=== PATIENT | female | born 1960 | race Caucasian/White ===

== ENCOUNTER 2019-03-03 15:15 | Emergency (ER) | payer MEDICAID ==
[~2019-03-03] VITALS: Ht 174.8 cm; Wt 75.7 kg
[2019-03-03 15:24] VITALS: BP 129/70
--- NOTE | 2019-03-03 15:32 | NUR ---
FLU SWAB COLLECTED.
--- NOTE | 2019-03-03 15:34 | NUR ---
Patient ambulated to bed 8. RN evaluating patient at bedside.
--- NOTE | 2019-03-03 15:39 | NUR ---
58 Y/O F C/C COUGH X7 DAYS. PER PT HAS TAKEN OTC MEDICATIONS WITH NO RELIEF. PER PT NKA. NO HX. NO RX. NO N/V/D. PT HAS NOT TAKEN FLU SHOT; FAMILY SICK AT HOME. SIDE RAIL X1.
[2019-03-03 16:31] VITALS: BP 129/70
--- NOTE | 2019-03-03 16:31 | NUR ---
Patient discharged with v/s stable. Written and verbal after care instructions given and explained. Patient alert, oriented and verbalized understanding of instructions. Ambulatory with steady gait. All questions addressed prior to discharge. ID band removed. Patient advised to follow up with PMD. Rx of VENTOLIN, TESSALON, MEDROL, TAMIFLU given. Patient educated on indication of medication including possible reaction and side effects. Opportunity to ask questions provided and answered.
== END 2019-03-03 16:31 | disposition home or self-care (01) ==
LOC: MED 15:15
DX: J20.9 Acute bronchitis, unspecified (principal); J10.1 Influenza due to other identified influenza virus with other respiratory manifestations; F17.210 Nicotine dependence, cigarettes, uncomplicated; Z71.6 Tobacco abuse counseling
CPT/HCPCS: 71045; 87804; 99284; Q0092

== ENCOUNTER 2020-03-21 09:32 | Emergency (ER) | payer MEDICAID, SELFPAY ==
[~2020-03-21] VITALS: Ht 165.1 cm; Wt 74.8 kg
[2020-03-21 09:53] VITALS: BP 132/51
--- NOTE | 2020-03-21 09:54 | NUR ---
Patient ambulated to bed 3. RN evaluating patient at bedside.
--- NOTE | 2020-03-21 10:30 | NUR ---
server support technician at bedside.
[2020-03-21 10:45] LABS: BASOPHILS % (AUTO) 0.3 % (0.0-2.0); EOSINOPHILS % (AUTO) 0.6 % (0.0-4.0); HEMATOCRIT 41.9 % (36-48); HEMOGLOBIN 13.8 g/dL (12.0-16.0); LYMPHOCYTES # (AUTO) 1.7 K/uL (2.5-16.5); MEAN CORPUSCULAR HEMOGLOBIN 28 pg (27-31); MEAN CORPUSCULAR HGB CONC 33 g/dL (33-37); MEAN CORPUSCULAR VOLUME 85.3 fL (80-94); MONOCYTES # (AUTO) 0.6 K/uL (0.8-1.0); MONOCYTES % (AUTO) 10.3 % (1.7-9.3); NEUTROPHILS # (AUTO) 3.6 K/uL (1.8-7.7); NEUTROPHILS % (AUTO) 60.8 % (42.2-75.2); PLATELET COUNT (AUTO) 244 K/uL (140-450); RED BLOOD CELL COUNT(AUTO) 4.91 MIL/uL (4.20-5.40); RED CELL DISTRIBUTION WIDTH 13.1 % (11.6-13.7); WHITE BLOOD COUNT (AUTO) 5.9 K/uL (4.8-10.8)
[2020-03-21 10:58] LABS: C-REACTIVE PROTEIN QUANT 2.5 mg/dL (0.0-0.9)
[2020-03-21 11:00] LABS: PROTHROMBIN TIME 8.8 secs (10.8-13.4)
[2020-03-21 11:03] LABS: LACTATE DEHYDROGENASE 228 U/L (81-234)
[2020-03-21 11:16] LABS: ALBUMIN 3.5 g/dL (3.4-5.0); ANION GAP 12.1 (8-16); CARBON DIOXIDE 29.1 mmol/L (21-32); POTASSIUM 4.2 mmol/L (3.5-5.1); TOTAL BILIRUBIN 0.4 mg/dL (0.0-1.0)
[2020-03-21 11:17] LABS: RSV NEGATIVE (NEGATIVE)
[2020-03-21 11:49] LABS: CREATININE 0.8 mg/dL (0.6-1.3)
[2020-03-21 13:00] LABS: APPEARANCE,URINE HAZY (CLEAR); BILIRUBIN,URINE NEGATIVE (NEGATIVE); BLOOD, URINE TRACE-I (NEGATIVE); COLOR,URINE YELLOW (YELLOW); LEUKOCYTE ESTERASE ,URINE TRACE (NEGATIVE); NITRITE, URINE POSITIVE (NEGATIVE); PH,URINE 6.5 (5.0-9.0); UGLUCOSE NEGATIVE (NEGATIVE)
[2020-03-21 13:10] LABS: RBC,URINE 0-5 /HPF (0-5); WBC,URINE 0-5 /HPF (0-5)
[2020-03-21] MEDS ORDERED: COMMUNICATION ORDER MC ONE (13:40)
[2020-03-21] MEDS ORDERED: bamlanivimab 700 MG (1 VIAL) in NACL 0.9% @ 270 MLS/HR(270ml) IV SCH (14:00)
[2020-03-21] MEDS ORDERED: DEXAMETHASONE 10 MG/ML VIAL IVP ONE (14:15)
[2020-03-21] MEDS ORDERED: AZITHROMYCIN 500 MG in DEXTROSE 5% 250 ML IV ONE (14:15)
[2020-03-21] MEDS ORDERED: AZITHROMYCIN 500 MG INJ VIAL IV ONE (15:00)
[2020-03-21 17:12] VITALS: BP 129/70
== END 2020-03-21 17:01 | disposition home or self-care (01) ==
LOC: MED 09:32
DX: U07.1 COVID-19 (principal); J12.82 Pneumonia due to coronavirus disease 2019; F17.210 Nicotine dependence, cigarettes, uncomplicated
CPT/HCPCS: 36415; 36600; 71045; 80053; 81001; 82550; 82728; 82803; 83605; 83615; 83880; 84484; 85025; 85379; 85384; 85610; 85730; 86140; 87040; 87086; 87420; 87426; 87804; 93005; 96365; 96375; 99285; J0456; J1100; J7030; J7060; M0239; U0003

== ENCOUNTER 2020-04-12 15:42 | Emergency (ER) | payer MEDICAID, SELFPAY ==
[~2020-04-12] VITALS: Ht 167.6 cm; Wt 64.4 kg
--- NOTE | 2020-04-12 15:50 | NUR ---
Pt ambulated to ER bed 5, traiged at bedside.
[2020-04-12 15:52] VITALS: BP 155/79
--- NOTE | 2020-04-12 15:58 | NUR ---
59 y/o female c/o bi-lateral ankle edema X 2days with 7/10 pain describes as burning worse with exertion and when bearing weight. Pt states she has taken no RX, soaked in epsom salts, elevated compression socks with no relief. Pt states she was COVID + [id number] ago, COVID - X1 week ago. On assessment, +2 pitting edema on R ankle and +1 on L ankle and reddended bilaterally. <3 seconds cap refill, full ROM and +2 pulses bilaterally. pt states she is not in any pain at the moment but it is sensitive to touch and feels "tight. pt denies n/v/sob. pt is A&O x4 laying in bed, bed in lowest position, brakes locked with x1 side rail up. Denies PMH NKA
--- NOTE | 2020-04-12 16:12 | NUR ---
DR PEREZ AT PT BEDSIDE FOR FURTHER EVALUATION
--- NOTE | 2020-04-12 16:29 | NUR ---
ANJELICA UNDERWOOD AT PT BEDSIDE FOR EVALUATION
[2020-04-12 16:42] VITALS: BP 155/79
--- NOTE | 2020-04-12 16:42 | NUR ---
Patient discharged with v/s stable. Written and verbal after care instructions given and explained. Patient alert, oriented and verbalized understanding of instructions. Ambulatory with steady gait. All questions addressed prior to discharge. ID band removed. Patient advised to follow up with PMD. Rx of Ibuprofen, Keflex 500mg given. Patient educated on indication of medication including possible reaction and side effects. Opportunity to ask questions provided and answered.
== END 2020-04-12 16:42 | disposition home or self-care (01) ==
LOC: MED 15:42
DX: L03.116 Cellulitis of left lower limb (principal); L03.115 Cellulitis of right lower limb; R03.0 Elevated blood-pressure reading, without diagnosis of hypertension; F17.210 Nicotine dependence, cigarettes, uncomplicated
CPT/HCPCS: 99283

== ENCOUNTER 2021-04-19 16:18 | Emergency (ER) | payer MEDICAID ==
[~2021-04-19] VITALS: Ht 165.1 cm; Wt 83.5 kg
[2021-04-19 16:30] VITALS: BP 146/85
--- NOTE | 2021-04-19 16:40 | NUR ---
60 Y/O FEMALE AMBULATED TO BED 4, C/O BILAT LOWER LEG NON-PAINFUL EDEMA X 2 WEEKS. BILAT LOWER LEGS APPEAR PINK/RED IN COLOR WITH + 3 PITTING EDEMA. PT STATES HER LOWER LEGS ARE ITCHY WELL. PMHX: PNA ALLERGIES: DENIES HOME MEDS: DENIES
[2021-04-19] MEDS ORDERED: PRED20TA5 PO (16:58)
== END 2021-04-19 17:05 | disposition home or self-care (01) ==
LOC: MED 16:18
DX: R60.9 Edema, unspecified (principal); R21 Rash and other nonspecific skin eruption; F17.200 Nicotine dependence, unspecified, uncomplicated
CPT/HCPCS: 99283